=== PATIENT | female | born 1950 | race Caucasian/White ===

== ENCOUNTER 2018-09-15 14:12 | Emergency (ER) | payer OTHER, MEDICARE ==
[~2018-09-15] VITALS: Ht 175.3 cm; Wt 68.0 kg
[2018-09-15 14:12] VITALS: BP_SYST 145
--- NOTE | 2018-09-15 14:12 | NUR ---
BROUGHT IMMEDIATELY BACK TO BED #8 AND TRIAGED, REPORT GIVEN TO CHASE
--- NOTE | 2018-09-15 14:16 | NUR ---
ER Dr. Ferraro at bedside examining patient.
--- NOTE | 2018-09-15 14:20 | NUR ---
Patient presented to ER with laceration to index finger to left hand. Patient AA&Ox4, afebrile, skin pink, respirations equal bilat, pain 5/10, denies N/V/D. Patient states she was using a quilting cutting tool at home when she cut herself x2 on index finger of left hand.
[2018-09-15] MEDS ORDERED: DIPH-TET-PERTUS Vaccine 0.5 ML VIAL (ADACEL) I.M. ONE (14:30)
[2018-09-15] MEDS ORDERED: LIDOCAINE 1% 10 MG/ML, 20 ML MDV INJ ONE (14:30)
--- NOTE | 2018-09-15 14:30 | NUR ---
Patient has a 4 cm laceration to indexfinger on left hand. Dr. Ferraro applied sutures using sterile technique. Edges well approximated. Site cleansed with betadine, sterile water. Dressing of non-adherant applied to site. No bleeding noted. Pt tolerated well.
[2018-09-15] MEDS ORDERED: BACITRACIN 1 GM OINT TP ONE (14:45)
[2018-09-15 14:55] VITALS: BP_SYST 140
--- NOTE | 2018-09-15 14:55 | NUR ---
Patient given written and verbal discharge instructions and verbalizes understanding. ER MD discussed with patient the results and treatment provided. Patient in stable condition. ID arm band removed. No Rx given. Patient educated on pain management and to follow up with PMD. Pain Scale 5/10 tolerable for patient. Opportunity for questions provided and answered. Medication side effect fact sheet provided.
== END 2018-09-15 14:55 | disposition home or self-care (01) ==
LOC: SED 14:12
DX: S61.211A Laceration without foreign body of left index finger without damage to nail, initial encounter (principal); I10 Essential (primary) hypertension; Z88.0 Allergy status to penicillin; W26.8XXA Contact with other sharp object(s), not elsewhere classified, initial encounter; Y93.89 Activity, other specified; Y92.89 Other specified places as the place of occurrence of the external cause; Y99.8 Other external cause status
CPT/HCPCS: 12002; 90471; 90715; 99284; J2001

== ENCOUNTER 2019-03-24 16:39 | Emergency (ER) | payer OTHER, MEDICARE ==
[~2019-03-24] VITALS: Ht 175.3 cm; Wt 65.8 kg
[2019-03-24 16:56] VITALS: BP_SYST 132
--- NOTE | 2019-03-24 17:11 | NUR ---
pPatient to ER bed 08 to gown for evaluation. Side rails up. Report given to SCOTT Magana
[2019-03-24] MEDS ORDERED: NACL 0.9% 1,000 ML IV ONE (17:15)
--- NOTE | 2019-03-24 17:30 | NUR ---
Patient presented to ER with abnormal oltrasound, reffered by Dr Onofre. Patient A&Ox4, afebrile, skin pink and warm, ambulatory to ER, afebrile, denies pain, denies N/V/D. patient states ahe ad abdominal pain wednesday and was by Dr. Onofre referred for ultrasound and perscription for ABX, Cipro.
--- NOTE | 2019-03-24 17:40 | NUR ---
ER Dr. Segovia at bedside examining patient.
[2019-03-24 18:15] LABS: INR 1.1 (0.8-1.2); PROTHROMBIN TIME 11.2 SECS (9.5-12.5)
[2019-03-24 18:39] LABS: BASOPHILS % (AUTO) 0.3 % (0.0-2.0); EOSINOPHILS # (AUTO) 0.1 K/uL (0.0-0.4); EOSINOPHILS % (AUTO) 1.8 % (0.0-4.0); HEMATOCRIT 36.1 % (36-48); HEMOGLOBIN 12.4 g/dL (12.0-16.0); LYMPHOCYTES % (AUTO) 11.8 % (20.5-51.5); MEAN CORPUSCULAR HEMOGLOBIN 31 pg (27-31); MEAN CORPUSCULAR HGB CONC 34 % (32-36); MEAN CORPUSCULAR VOLUME 91 fL (79.0-98.0); MONOCYTES # (AUTO) 0.6 K/uL (0.0-1.0); MONOCYTES % (AUTO) 6.7 % (1.7-9.3); NEUTROPHILS # (AUTO) 6.6 K/uL (1.8-7.7); NEUTROPHILS % (AUTO) 79.4 % (40.0-70.0); PLATELET COUNT (AUTO) 431 K/uL (130-430); RED BLOOD CELL COUNT(AUTO) 3.97 MIL/uL (4.2-6.2); RED CELL DISTRIBUTION WIDTH 12.6 % (9.0-15.0); WHITE BLOOD COUNT (AUTO) 8.2 K/uL (4.8-10.8)
[2019-03-24 18:45] LABS: CALCIUM 8.8 mg/dL (8.4-11.0); CREATININE 1.2 mg/dL (0.55-1.30); POTASSIUM 3.4 mmol/L (3.5-5.1)
[2019-03-24 18:51] LABS: ALBUMIN 3.7 g/dL (3.4-4.8); TOTAL BILIRUBIN 0.3 mg/dL (0.0-1.0)
--- NOTE | 2019-03-24 19:00 | NUR ---
Patient to Radiology with staff.
[2019-03-24] MEDS ORDERED: IOHEXOL 100 ML IV ONE (19:11)
--- NOTE | 2019-03-24 19:25 | NUR ---
Report to Omar CHAVEZ
[2019-03-24 19:59] VITALS: BP_SYST 132
--- NOTE | 2019-03-24 20:00 | NUR ---
Note undone in EDM - 03/24/19 at 2026 by [email or web address] [id number] given written and verbal discharge instructions and verbalizes understanding. ER MD discussed with patient the results and treatment provided. Patient in stable condition. ID arm band removed. IV catheter removed intact and dressing applied, no active bleeding. Patient educated on pain management and to follow up with PMD. Pain Scale 0. Opportunity for questions provided and answered. Medication side effect fact sheet provided.
== END 2019-03-24 20:00 | disposition home or self-care (01) ==
LOC: SED 16:39
DX: K57.92 Diverticulitis of intestine, part unspecified, without perforation or abscess without bleeding (principal); I10 Essential (primary) hypertension; Z88.0 Allergy status to penicillin
CPT/HCPCS: 36415; 74177; 80053; 85025; 85610; 85730; 87040; 99284; J7030; Q9967